=== PATIENT | male | born 1965 | race Caucasian/White ===

== ENCOUNTER 2016-07-25 01:25 | Inpatient (IN) | payer OTHER ==
[~2016-07-25] VITALS: Ht 185.4 cm; Wt 142.9 kg
[~2016-07-25 01:25] MED LIST: ALEVE220 MG PO; ASPIR-LOW81 MG PO; CARDIZEM CD,CA180 MG PO; CARDIZEM CD120 MG PO; CARVEDILOL25 MG PO; CARVEDILOL6.25 MG PO; CIPROFLOXACIN500 M1 PO; DELTASONE20 M1 PO; DIGOXIN250 MCG PO; DIOVAN; DIOVAN HCT 31 TABLE1 PO; EASY COMFORT I1 EAC6 MC; GLYBURIDE5 MG PO; JANUMET 50/11 TABLET PO; LANTUS 10100 UNITS/ SC; LEVEMIR FL100 UNIT/1 SC; LEVEMIR FL100 UNITS/ SC; LOVASTATIN40 MG PO; METFORMIN; METOCLOPRAMIDE10 MG PO; METRONIDAZOLE500 MG PO; NIFEDIPINE ER30 MG PO; NOVOLOG 10100 UNITS/ SC; NOVOLOG PE100 UNITS/ SC; PRAVASTATIN SOD40 MG PO; SYMBICORT60 INHALAT IH; XARELTO20 MG PO
[2016-07-25 01:49] LABS: BASOPHIL COUNT 0.1 K/uL (0-0.1); EOSINOPHIL (%) 1.3 % (0-5); EOSINOPHIL COUNT 0.2 K/uL (0-0.3); HEMATOCRIT 41.1 % (38.0-50.0); IMMATURE GRANULOCYTE (%) 0.6 % (0.0-0.7); IMMATURE GRANULOCYTE COUNT 0.1 K/uL; LYMPHOCYTE COUNT 2.1 K/uL (1.0-2.8); MCH 29.1 PG (29.0-34.0); MCHC 33.1 G/DL (30.0-36.0); MEAN PLAT.VOLUME 10.3 uM^3 (9.0-12.4); MONOCYTE (%) 9.1 % (3-12); MONOCYTE COUNT 1.1 K/uL (0-0.8); NEUTROPHIL (%) 71.7 % (45-76); PLATELET COUNT 235 K/uL (156-360); RBC DIS.WIDTH-CV 12.4 % (11.8-14.6); RBC DIS.WIDTH-SD 40.2 % (39-53); RED BLOOD COUNT 4.67 M/uL (4.00-5.50); WHITE BLOOD COUNT 12.5 K/uL (4.1-10.2)
[2016-07-25 02:00] LABS: CHLORIDE 98 mEq/L (99-109); POTASSIUM 3.5 mEq/L (3.7-5.4); SODIUM 134 mEq/L (136-147)
[2016-07-25 02:02] LABS: GLUCOSE 178 mg/dL (70-99)
[2016-07-25 02:03] LABS: ANION GAP 10 MEQ/L (2-14)
[2016-07-25 02:06] LABS: GFR ESTIMATE (CALCULATED) > 59 mL/min/
[2016-07-25 02:07] LABS: UREA NITROGEN (BUN) 21 mg/dL (9-23)
[2016-07-25 10:20] LABS: Estimated Average Glucose 229 mg/dL (70-123); HEMOGLOBIN A1c (GLYCOHEMOGLOB) 9.6 % HGB (Below 5.7)
[2016-07-25] MEDS ORDERED: ATORVASTATIN CA40 MG PO (10:34)
[2016-07-25] MEDS ORDERED: HUMULIN 70100 UNIT/2 SC ×2 (10:35)
[2016-07-25] MEDS ORDERED: INVOKANA300 MG PO (10:35)
[2016-07-25] MEDS ORDERED: VALSARTAN160 MG PO (10:36)
[2016-07-25] MEDS ORDERED: METFORMIN HCL1000 MG PO (10:36)
[2016-07-25] MEDS ORDERED: HYDROCHLOROTH12.5 M3 PO (10:36)
[2016-07-25 11:34] LABS: POINT-OF-CARE METER ID UU13113747
[2016-07-25 12:17] VITALS: BP 164/85
[2016-07-25 13:14] LABS: POINT-OF-CARE METER ID UU13113807
[2016-07-25 17:03] VITALS: BP 130/75
[2016-07-25 17:32] LABS: POINT-OF-CARE METER ID UU13113807
[2016-07-25 20:00] VITALS: BP 138/75
[2016-07-25 21:51] LABS: POINT-OF-CARE METER ID UU13113807
[2016-07-26] VITALS: BP 129/74
[2016-07-26 05:59] LABS: EOSINOPHIL COUNT 0.1 K/uL (0-0.3); IMMATURE GRANULOCYTE (%) 0.7 % (0.0-0.7); IMMATURE GRANULOCYTE COUNT 0.1 K/uL; INSTRUMENT ABS NEUTROPHIL CT 4.4 K/uL; LYMPHOCYTE COUNT 1.4 K/uL (1.0-2.8); MCHC 32.7 G/DL (30.0-36.0); MCV 88.7 FL (86-99); MONOCYTE (%) 12.6 % (3-12); MONOCYTE COUNT 0.9 K/uL (0-0.8); NEUTROPHIL (%) 63.5 % (45-76); NEUTROPHIL COUNT 4.4 K/uL (1.8-6.4); PLATELET COUNT 203 K/uL (156-360); RBC DIS.WIDTH-CV 12.3 % (11.8-14.6); RBC DIS.WIDTH-SD 40.1 % (39-53); RED BLOOD COUNT 4.17 M/uL (4.00-5.50); WHITE BLOOD COUNT 6.9 K/uL (4.1-10.2)
[2016-07-26 06:26] LABS: ALKALINE PHOSPHATASE 46 IU/L (3-129); ANION GAP 10 MEQ/L (2-14); CHLORIDE 105 MEQ/L (99-109); GFR ESTIMATE (CALCULATED) > 59 mL/min/; GLUCOSE 131 mg/dL (70-99); POTASSIUM 3.6 MEQ/L (3.7-5.4); SAMPLE HEMOLYSIS CHECK 0; SAMPLE ICTERIC CHECK 0; SAMPLE LIPEMIA CHECK 0; SODIUM 139 MEQ/L (136-147); TOTAL BILIRUBIN 0.3 MG/DL (0.0-1.0); UREA NITROGEN (BUN) 15 mg/dL (9-23)
[2016-07-26 08:16] VITALS: BP 141/71
[2016-07-26 08:57] LABS: POINT-OF-CARE METER ID UU13113807
[2016-07-26 12:20] VITALS: BP 129/75
[2016-07-26 12:22] LABS: POINT-OF-CARE METER ID UU13113807
[2016-07-26 14:28] LABS: POINT-OF-CARE METER ID UU13113675
[2016-07-26 16:22] VITALS: BP 138/75
[2016-07-26 16:57] LABS: POINT-OF-CARE METER ID UU13113807
[2016-07-26 21:29] LABS: POINT-OF-CARE METER ID UU13113807
[2016-07-26 21:44] VITALS: BP 132/70
[2016-07-26 23:50] VITALS: BP 141/85
[2016-07-27 08:10] VITALS: BP 132/75
[2016-07-27 09:11] LABS: POINT-OF-CARE METER ID UU14149396
[2016-07-27 12:29] LABS: POINT-OF-CARE METER ID UU14149396
[2016-07-27 15:47] VITALS: BP 139/88
[2016-07-27 17:41] LABS: POINT-OF-CARE METER ID UU14149396
[2016-07-27 21:27] VITALS: BP 148/82
[2016-07-27 21:31] LABS: POINT-OF-CARE METER ID UU14149396
[2016-07-27 23:10] VITALS: BP 137/76
[2016-07-28 07:42] VITALS: BP 157/88
[2016-07-28 08:38] LABS: POINT-OF-CARE METER ID UU14149398
[2016-07-28 09:38] LABS: EOSINOPHIL (%) 2.8 % (0-5); EOSINOPHIL COUNT 0.2 K/uL (0-0.3); HEMATOCRIT 40.1 % (38.0-50.0); IMMATURE GRANULOCYTE (%) 0.5 % (0.0-0.7); INSTRUMENT ABS NEUTROPHIL CT 3.3 K/uL; LYMPHOCYTE COUNT 1.8 K/uL (1.0-2.8); MCH 29.3 PG (29.0-34.0); MCHC 32.9 G/DL (30.0-36.0); MCV 89.1 FL (86-99); MONOCYTE (%) 11.3 % (3-12); MONOCYTE COUNT 0.7 K/uL (0-0.8); NEUTROPHIL COUNT 3.3 K/uL (1.8-6.4); RBC DIS.WIDTH-CV 12.2 % (11.8-14.6); RBC DIS.WIDTH-SD 40.3 % (39-53)
[2016-07-28 10:08] LABS: ANION GAP 8 MEQ/L (2-14); CHLORIDE 106 MEQ/L (99-109); GFR ESTIMATE (CALCULATED) > 59 mL/min/; GLUCOSE 145 mg/dL (70-99); POTASSIUM 3.7 MEQ/L (3.7-5.4); SAMPLE HEMOLYSIS CHECK 0; SAMPLE ICTERIC CHECK 0; SAMPLE LIPEMIA CHECK 0; SODIUM 139 MEQ/L (136-147); UREA NITROGEN (BUN) 12 mg/dL (9-23)
[2016-07-28 10:45] LABS: MEAN PLAT.VOLUME 10.1 uM^3 (9.0-12.4); PLAT.SUFFICIENCY ADEQUATE; PLATELET COUNT 211 K/uL (156-360)
[2016-07-28 12:18] LABS: POINT-OF-CARE METER ID UU14149398
[2016-07-28 15:28] VITALS: BP 142/86
[2016-07-28] MEDS ORDERED: KEFLEX500 MG PO (15:29)
[2016-07-28] MEDS ORDERED: BACTRIM,SEPT1 TABLET PO (15:29)
== END 2016-07-28 15:51 | disposition home or self-care (01) | DRG 617 ==
LOC: EME 01:25 → 4SOUTH 03:41 → EDOF 03:41 → 4SOUTH 11:36
PROVIDERS: Emergency Medicine; Hospitalist; Internal Medicine
PROC: 0Y6N0ZB Detachment at Left Foot, Partial 2nd Ray, Open Approach (ICD-10-PCS; principal; 2016-07-26)
DX: E11.69 Type 2 diabetes mellitus with other specified complication (principal); M86.172 Other acute osteomyelitis, left ankle and foot; E66.01 Morbid (severe) obesity due to excess calories; I10 Essential (primary) hypertension; E11.42 Type 2 diabetes mellitus with diabetic polyneuropathy; E11.621 Type 2 diabetes mellitus with foot ulcer; E78.5 Hyperlipidemia, unspecified; L03.116 Cellulitis of left lower limb; L97.529 Non-pressure chronic ulcer of other part of left foot with unspecified severity; Z68.41 Body mass index [BMI] 40.0-44.9, adult; Z79.4 Long term (current) use of insulin; Z79.51 Long term (current) use of inhaled steroids; Z83.3 Family history of diabetes mellitus; Z88.0 Allergy status to penicillin; R00.0 Tachycardia, unspecified; R20.0 Anesthesia of skin
CPT/HCPCS: 73630; 73720; 80048; 80053; 80202; 82948; 83036; 83605; 85025; 87040; 87070; 87075; 87076; 87077; 87147; 87185; 87186; 87205; 88305; 88311; 99281; 99285; J0690; J0696; J1650; J1815; J1956; J2250; J3010; J3370; J7030; J7050; S0030

== ENCOUNTER → 2016-10-19 | Outpatient (CLI) | payer OTHER ==
[~2016-10-19] MED LIST changes: +ATORVASTATIN CA40 MG PO; +BACTRIM,SEPT1 TABLET PO; +HUMULIN 70100 UNIT/2 SC; +HYDROCHLOROTH12.5 M3 PO; +INVOKANA300 MG PO; +KEFLEX500 MG PO; +METFORMIN HCL1000 MG PO; +VALSARTAN160 MG PO
== END | disposition home or self-care (01) ==
LOC: PICC 12:30
DX: M86.8X7 Other osteomyelitis, ankle and foot (principal)
CPT/HCPCS: C1894